=== PATIENT | female | born 1955 | race Caucasian/White ===

== ENCOUNTER → 2017-01-09 | Outpatient (CLI) | payer BC | LOC: EXRD 15:00 | DX: Z78.0 Asymptomatic menopausal state (principal) | CPT/HCPCS: 77080 ==

== ENCOUNTER → 2020-09-08 | Outpatient (CLI) | payer BC ==
[~2020-09-08] MED LIST: AROMASIN25 MG PO; ASPIRIN CHEWABL81 MG PO; DELZICOL PO; FLAX SEED OIL1000 MG PO; GLUCOSAMINE HC500 MG PO; LIPITOR TAB 1010 MG PO; MAGOX 400400 MG PO; THERAGRAN M TAB1 EA PO
== END ==
LOC: EXRD 13:49
DX: Z08 Encounter for follow-up examination after completed treatment for malignant neoplasm (principal); Z85.3 Personal history of malignant neoplasm of breast
CPT/HCPCS: 77080

== ENCOUNTER → 2021-02-08 | Outpatient (CLI) | payer BC ==
[2021-02-08 12:48] LABS: HEMOGLOBIN 14.5 gm/dl (12.3-15.3); RED BLOOD COUNT 4.72 M/UL (4.00-5.10); WHITE BLOOD COUNT 7.7 K/UL (4.5-11.0)
[2021-02-08 13:33] LABS: BUN/CREATININE RATIO 20 (0-10)
== END ==
LOC: LAB 10:49
PROVIDERS: Nurse Practitioner Family
DX: K51.90 Ulcerative colitis, unspecified, without complications (principal); M54.6 Pain in thoracic spine; R14.2 Eructation
CPT/HCPCS: 36415; 80053; 82607; 82728; 83540; 83550; 85025; 85652; 86140

== ENCOUNTER → 2021-06-07 | Outpatient (CLI) | payer BC | LOC: EXRD 11:38 | DX: R31.9 Hematuria, unspecified (principal); R14.3 Flatulence | CPT/HCPCS: 74018 ==

== ENCOUNTER → 2021-06-15 | Outpatient (CLI) | payer BC ==
[2021-06-15 14:54] LABS: HEMOGLOBIN 14.5 gm/dl (12.3-15.3); RED BLOOD COUNT 4.73 M/UL (4.00-5.10); WHITE BLOOD COUNT 9.1 K/UL (4.5-11.0)
== END ==
LOC: LAB 14:23
PROVIDERS: Internal Medicine Hematology & Oncology
DX: C50.919 Malignant neoplasm of unspecified site of unspecified female breast (principal)
CPT/HCPCS: 36415; 80053; 85025; 86300

== ENCOUNTER → 2021-06-17 | Outpatient (CLI) | payer BC | LOC: CT 13:30 | DX: C50.919 Malignant neoplasm of unspecified site of unspecified female breast (principal); N64.89 Other specified disorders of breast | CPT/HCPCS: 71270; Q9967 ==

== ENCOUNTER → 2021-08-09 | Outpatient (CLI) | payer MEDICARE, BC ==
[2021-08-09 15:45] LABS: HEMOGLOBIN 14.3 gm/dl (12.3-15.3); RED BLOOD COUNT 4.65 M/UL (4.00-5.10); WHITE BLOOD COUNT 8.8 K/UL (4.5-11.0)
[2021-08-09 16:18] LABS: BUN/CREATININE RATIO 19 (0-10)
== END ==
LOC: LAB 15:02
PROVIDERS: Internal Medicine Hematology & Oncology
DX: C50.919 Malignant neoplasm of unspecified site of unspecified female breast (principal)
CPT/HCPCS: 80053; 85025

== ENCOUNTER → 2021-08-30 | Outpatient (CLI) | payer MEDICARE, BC | LOC: LAB 16:20 | DX: C50.919 Malignant neoplasm of unspecified site of unspecified female breast (principal) | CPT/HCPCS: 36415; 83036 ==

== ENCOUNTER → 2021-08-31 | Outpatient (CLI) | payer MEDICARE, BC ==
[2021-08-31 11:14] LABS: HEMOGLOBIN 14.1 gm/dl (12.3-15.3); RED BLOOD COUNT 4.65 M/UL (4.00-5.10); WHITE BLOOD COUNT 21.4 K/UL (4.5-11.0)
[2021-09-01 06:10] LABS: A/G RATIO 1.6 (1.2-2.2); ALKALINE PHOSPHATASE, S 117 IU/L (44-121); ALT (SGPT) 32 IU/L (0-32); AST (SGOT) 21 IU/L (0-40); BILIRUBIN, TOTAL <0.2 mg/dL (0.0-1.2); BUN 28 mg/dL (8-27); BUN/CREATININE RATIO 26 (12-28); CALCIUM, SERUM 9.1 mg/dL (8.7-10.3); CARBON DIOXIDE, TOTAL 27 mmol/L (20-29); CHLORIDE, SERUM 101 mmol/L (96-106); CREATININE, SERUM 1.09 mg/dL (0.57-1.00); EGFR IF AFRICN AM 62 (>59); EGFR IF NONAFRICN AM 53 (>59); GLOBULIN, TOTAL 2.6 g/dL (1.5-4.5); GLUCOSE, SERUM 96 mg/dL (65-99); POTASSIUM, SERUM 3.9 mmol/L (3.5-5.2); PROTEIN, TOTAL, SERUM 6.8 g/dL (6.0-8.5); SODIUM, SERUM 142 mmol/L (134-144)
== END ==
LOC: LAB 08:45
PROVIDERS: Internal Medicine Hematology & Oncology
DX: C50.919 Malignant neoplasm of unspecified site of unspecified female breast (principal)
CPT/HCPCS: 36415; 80053; 85025

== ENCOUNTER → 2022-02-21 | Outpatient (CLI) | payer MEDICARE, BC ==
[2022-02-21 12:33] LABS: HEMOGLOBIN 14.5 gm/dl (12.3-15.3); RED BLOOD COUNT 4.7 M/UL (4.00-5.10); WHITE BLOOD COUNT 7.7 K/UL (4.5-11.0)
[2022-02-21 12:50] LABS: BUN/CREATININE RATIO 21 (0-10)
== END ==
LOC: LAB 10:53
PROVIDERS: Internal Medicine Hematology & Oncology
DX: E53.8 Deficiency of other specified B group vitamins (principal); Z85.3 Personal history of malignant neoplasm of breast
CPT/HCPCS: 36415; 80053; 82607; 82728; 83540; 83550; 85025; 85652; 86140

== ENCOUNTER → 2022-05-23 | Outpatient (CLI) | payer MEDICARE, BC ==
[2022-05-23 11:15] LABS: HEMOGLOBIN 14.4 gm/dl (12.3-15.3); RED BLOOD COUNT 4.71 M/UL (4.00-5.10); WHITE BLOOD COUNT 8.4 K/UL (4.5-11.0)
[2022-05-23 11:43] LABS: BUN/CREATININE RATIO 17 (0-10)
[2022-05-24 11:14] LABS: CREATININE, URINE 30.5 mg/dL (Not Estab.)
== END ==
LOC: LAB 10:36
PROVIDERS: Nurse Practitioner Family
DX: Z00.00 Encounter for general adult medical examination without abnormal findings (principal); R73.9 Hyperglycemia, unspecified; E78.5 Hyperlipidemia, unspecified; G47.00 Insomnia, unspecified; R31.9 Hematuria, unspecified; Z85.3 Personal history of malignant neoplasm of breast
CPT/HCPCS: 36415; 80053; 80061; 81001; 82043; 82570; 83036; 84439; 84443; 85025

== ENCOUNTER → 2022-06-02 | Outpatient (CLI) | payer MEDICARE, BC | LOC: CT 12:31 | DX: R31.29 Other microscopic hematuria (principal) | CPT/HCPCS: Q9967 ==